=== PATIENT | male | born 1970 | race Caucasian/White ===

== ENCOUNTER 2021-10-30 19:01 | Emergency (ER) | payer OTHER ==
[~2021-10-30] VITALS: Ht 177.8 cm; Wt 106.6 kg
--- NOTE | 2021-10-31 22:00 | EKG ---
[facility] [address] [place], [place] [address] Signed Normal sinus rhythm Normal ECG No previous ECGs available Confirmed by EDILSON TAM DO ([id number]) on 10/31/2021 9:59:52 PM Electronically Signed By: EDILSON TAM DO 10/31/212199 PATIENT NAME: GABRIELA ADAMS Electrocardiogram DATE OF : 66 PHYSICIAN: EDILSON TAM DO REPORT #: [id number] REPORT IS CONFIDENTIAL AND NOT TO BE RELEASED WITHOUT AUTHORIZATION
== END 2021-10-30 22:56 | disposition home or self-care (01) ==
LOC: ED 19:01
DX: R60.0 Localized edema (principal)
CPT/HCPCS: 80048; 83880; 84484; 85025; 93005; 93010; 93971; 99284-25